=== PATIENT | male | born 1950 | race Caucasian/White ===

== ENCOUNTER → 2024-02-19 | Day surgery (SDC) | payer OTHER ==
[~2024-02-19] VITALS: Ht 167.6 cm; Wt 102.1 kg
[~2024-02-19] MED LIST: AMLODIPINE BESYL5 MG PO; ATENOLOL25 MG PO; CHLORTHALIDONE25 MG PO; DULOXETINE HCL20 MG PO; EFFER-K20 MEQ PO; FISH OIL 1,0001 EAC1 PO; Lactated Ringer's Solution 1,000 ML IV ONE; Lidocaine Hydrochloride 2% 10 ML AMP IV ONE; Midazolam Hydrochloride 2 MG/2 ML VIAL IV ONE; PROPOFOL 200 MG/20 ML VIAL IV ONE; TERAZOSIN HCL10 M1 PO; VITAMIN D325 MCG PO
[2024-02-19 11:27] VITALS: BP 151/51
[2024-02-19 13:04] VITALS: BP 111/51
[2024-02-19 13:19] VITALS: BP 122/56
[2024-02-19 13:32] VITALS: BP 128/64
== END | disposition home or self-care (01) ==
LOC: SDC 01-04 12:30
PROVIDERS: ATTEND Surgery
DX: Z12.11 Encounter for screening for malignant neoplasm of colon (principal); K57.90 Diverticulosis of intestine, part unspecified, without perforation or abscess without bleeding; K21.9 Gastro-esophageal reflux disease without esophagitis; I10 Essential (primary) hypertension; F32.A Depression, unspecified; Z87.891 Personal history of nicotine dependence; Z79.899 Other long term (current) drug therapy; Z90.89 Acquired absence of other organs; Z98.890 Other specified postprocedural states